=== PATIENT | male | born 1955 | race Caucasian/White ===

== ENCOUNTER → 2023-06-05 | Outpatient (CLI) | payer MEDICARE ==
--- NOTE | 2023-06-05 16:45 | Diagnostic Imaging Report ---
Indication: Chronic right knee pain. Time of Exam: 10:48 AM 4 views right knee were obtained including AP, lateral, oblique and patellar sunrise views. There is mild patellofemoral degenerative change. The medial and lateral compartments are well-maintained. Articular surfaces are smooth. No fracture, dislocation or effusion is identified. IMPRESSION: Mild degenerative changes. No acute bony abnormality is detected. Dictated by: Dictated on workstation # [id number]
== END ==
LOC: ORTHO 10:37
PROVIDERS: ATTEND Orthopaedic Surgery
DX: M17.11 Unilateral primary osteoarthritis, right knee (principal)
CPT/HCPCS: 20610; 73564; G0463; 99203

== ENCOUNTER → 2023-06-19 | Outpatient (CLI) | payer MEDICARE | LOC: ORTHO 11:02 | PROVIDERS: ATTEND Orthopaedic Surgery | DX: M17.11 Unilateral primary osteoarthritis, right knee (principal); M19.042 Primary osteoarthritis, left hand; M19.041 Primary osteoarthritis, right hand | CPT/HCPCS: 99213 ==

== ENCOUNTER → 2023-07-09 | Outpatient (CLI) | payer MEDICARE | LOC: ORTHO 11:13 | PROVIDERS: ATTEND Orthopaedic Surgery | DX: M17.11 Unilateral primary osteoarthritis, right knee (principal) | CPT/HCPCS: 20610; G0463; 99213 ==

== ENCOUNTER → 2023-08-19 | Outpatient (CLI) | payer MEDICARE ==
--- NOTE | 2023-08-19 16:38 | Diagnostic Imaging Report ---
WRIST,BILAT,3 VIEWS OR MORE INDICATION: Bilateral wrist pain COMPARISON: None available. TECHNIQUE: 3 views of each wrist for a total of 6 views FINDINGS: Normal osseous mineralization without fracture or erosions. There is intraosseous cyst within the distal pole of the left scaphoid which is favored degenerative in nature. No avascular necrosis in the lunate on either side. No chondrocalcinosis. IMPRESSION: 1. Degenerative changes of the left thumb base. 2. No acute osseous abnormality. Dictated by: Dictated on workstation # [id number]
== END ==
LOC: ORTHO 09:35
PROVIDERS: ATTEND Orthopaedic Surgery
DX: G56.03 Carpal tunnel syndrome, bilateral upper limbs (principal)
CPT/HCPCS: 73110; G0463; 99213